=== PATIENT | female | born 1945 | race Caucasian/White ===

== ENCOUNTER 2016-11-05 09:33 | Outpatient (RCR) | payer MEDICARE, OTHER ==
[~2016-11-05] VITALS: Ht 152.4 cm; Wt 48.5 kg
[~2016-11-05 09:33] MED LIST: ACHYD1T PO; AMLO2.5T2 PO; ASPI-345 PO; CHOL200014 PO; CHOL4000 PO; CMBV14CC IH; CMBV14CC INH; FLC1T PO; HYDR1TAB88 PO; ITRA100C PO; LEFL20TA18 PO; LEVO25TA PO; LOSA25TA2 PO; LVT.025T PO; METH2.5T PO; OXC10TCR PO; PRED20TA PO; SPIR25TA PO; TIOT18CA IH; TIOT4MIS3 IH; [UNRECOGNIZED DRUG - CODE] PO
[2016-11-05] MEDS ORDERED: cefTRIAXone 1 GM (ROCEPHIN) VIAL IM SCH (09:52)
[2016-11-05] MEDS ORDERED: LIDOCAINE PF 1% (XYLOCAINE) 2 ML VIAL INJ SCH (09:53)
--- NOTE | 2016-11-05 10:18 | NUR ---
Patient tolerated injection well but is somewhat anxious. Pt's last Rocephin admin was last May which she tolerated well. Pt will remain in ED area until 1030 hrs visiting with Volunteer. Pt verbalizes understanding of what to watch for regarding possible medication reaction.
[2016-11-06] MEDS: NS FLUSH 3 ML PRN IV (09:47)
[2016-11-06] MEDS: cefTRIAXone SODIUM 1,000 MG in SODIUM CHLORIDE 50 ML IV SCH (09:48)
--- NOTE | 2016-11-06 10:14 | NUR ---
Patient dc'd with IV in place. Flushed and secured with dressing. Patient educated on IV access, verbalizes understanding.
[2016-11-07] MEDS: cefTRIAXone SODIUM 1,000 MG in SODIUM CHLORIDE 50 ML IV SCH (09:00)
[2016-11-07] MEDS: NS FLUSH 10 ML PRN IV (10:53)
[2016-11-08] MEDS: NS FLUSH 10 ML PRN IV (09:39)
[2016-11-08] MEDS: cefTRIAXone SODIUM 1,000 MG in SODIUM CHLORIDE 50 ML IV SCH (09:39)
--- NOTE | 2016-11-09 09:30 | NUR ---
pt has one more treatment, hard to find iv placement, will leave in for final dose, flushes well, is not painfull, pt also states she needs one more dose to complete her treatment
[2016-11-09] MEDS: cefTRIAXone SODIUM 1,000 MG in SODIUM CHLORIDE 50 ML IV SCH (09:39)
[2016-11-10 09:35] VITALS: BP 156/80
[2016-11-10] MEDS: cefTRIAXone SODIUM 1,000 MG in SODIUM CHLORIDE 50 ML IV SCH (09:41)
[2016-11-10] MEDS: NS FLUSH 3 ML PRN IV (09:45)
[2016-11-10] MEDS: NS FLUSH 10 ML PRN IV (09:45)
== END 2017-01-22 18:22 | disposition home or self-care (01) ==
LOC: EUOP 11-06 09:20
PROVIDERS: ATTEND Family Medicine
DX: J44.1 Chronic obstructive pulmonary disease with (acute) exacerbation (principal); B39.3 Disseminated histoplasmosis capsulati; Z79.2 Long term (current) use of antibiotics
CPT/HCPCS: 96365; 96372; J0696; J2001; 36000